=== PATIENT | male | born 1945 | race Caucasian/White ===

== ENCOUNTER 2017-11-17 16:51 | Observation (INO) | payer MEDICARE, OTHER ==
[~2017-11-17] VITALS: Ht 177.8 cm; Wt 96.6 kg
[~2017-11-17 16:51] MED LIST: AMOXICILLIN500 MG PO; AZOR 10-40 MG1 EACH PO; BENICAR20 MG PO; BYSTOLIC5 MG PO; COLESTIPOL HCL1 GM PO; LEVAQUIN500 MG PO; OCUVITE SOFTGE1 EACH PO; VITAMIN D35000 UNIT PO
[2017-11-17] MEDS ORDERED: TAMSULOSIN HCL0.4 MG PO (17:36)
[2017-11-17] MEDS ORDERED: SODIUM CHLORIDE 0.9% 1000ML 1,000 ML IV STA (17:59)
--- NOTE | 2017-11-17 18:32 | Diagnostic Imaging Report ---
PROCEDURE:HAND RIGHT 3 VIEWS AP \T\ LAT COMPARISON:DX, WRIST COMPLETE LEFT, 11/17/2014, 9:00. INDICATIONS:RIGHT HAND SWELLING FINDINGS: Generalized osteopenia. No acute, displaced fracture or dislocation. Moderate degenerative changes with joint space narrowing and subchondral sclerosis in the first carpometacarpal joint as well as the scaphoid-trapezium/trapezoid joints. Sclerotic changes of the lunate bone, suggesting sequela of avascular necrosis. No lytic lesions. Mild soft tissue swelling surrounding the wrist. CONCLUSION: 1. No acute abnormalities. 2. Moderate degenerative changes in the first carpometacarpal joint and scaphoid-trapezium/trapezoid joints. 3. 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 Kin Garcia M.D. Dictated by: Kin Garcia M.D. on 11/17/2017 at 18:41 Electronically approved by: Kin Garcia M.D. on 11/17/2017 at 18:41
--- NOTE | 2017-11-17 18:34 | Diagnostic Imaging Report ---
PROCEDURE:CHEST 1 VIEW PORTABLE COMPARISON:CT, CT CHEST WO, 02/17/2015, 13:33. INDICATIONS:RIGHT HAND SWELLING FINDINGS:Lungs are well-inflated. Minimal atelectatic changes in the left lower lung. No consolidation or pulmonary edema. No effusion, or pneumothorax. Cardiac mediastinal silhouette is unremarkable. Pulmonary vasculature is normal. No acute bony abnormalities. CONCLUSION: Minimal atelectatic changes in the left lower lung. No consolidation or effusion. Kin Garcia M.D. Dictated by: Kin Garcia M.D. on 11/17/2017 at 18:44 Electronically approved by: Kin Garcia M.D. on 11/17/2017 at 18:44
[2017-11-17 19:04] LABS: BASOPHILS % 0.3 % (0.0-1.0); EOSINOPHILS # (AUTO) 0.1 (0.0-0.4); EOSINOPHILS % 0.4 % (0.0-6.0); HEMOGLOBIN 14.2 g/dL (14.0-18.0); LYMPHOCYTES # (AUTO) 1.4 (1.0-3.2); LYMPHOCYTES % 12.5 % (18.0-39.1); MEAN CORPUSCULAR HEMOGLOBIN 32.1 pg (28-32); MEAN CORPUSCULAR HGB CONC 34.6 g/dL (31-35); MEAN CORPUSCULAR VOLUME 92.8 fL (81-99); MONOCYTES % 8.3 % (4.4-11.3); NEUTROPHILS # (AUTO) 8.9 (2.1-6.9); NEUTROPHILS % 77.9 % (38.7-80.0); PLATELET COUNT 206 x10e3/uL (140-360); RED BLOOD COUNT 4.42 x10e6/uL (4.3-5.7); RED CELL DISTRIBUTION WIDTH 12.5 % (11.7-14.4)
[2017-11-17] MEDS: LEVOFLOXACIN 500MG/D5W 100ML 100 ML IV SCH (19:19)
[2017-11-17 19:24] LABS: ALANINE AMINOTRANSFERASE 11 IU/L (0-55); ALBUMIN 4.3 g/dL (3.5-5.0); ALBUMIN/GLOBULIN RATIO 1.2 (0.8-2.0); ALKALINE PHOSPHATASE 33 IU/L (40-150); ANION GAP 14.2 mmol/L (8-16); BLOOD UREA NITROGEN 17 mg/dL (7-26); BUN/CREATININE RATIO 17 (6-25); CALCIUM 9.4 mg/dL (8.4-10.2); CARBON DIOXIDE 23 mmol/L (22-29); CHLORIDE 98 mmol/L (98-107); CREATININE, SERUM 1.03 mg/dL (0.72-1.25); EST GLOMERULAR FILTRATION RATE > 60 ML/MIN (60-); GLUCOSE 90 mg/dL (74-118); MAGNESIUM 1.7 MG/DL (1.3-2.1); POTASSIUM 4.2 mmol/L (3.5-5.1); SODIUM 131 mmol/L (136-145)
[2017-11-17] MEDS ORDERED: ONDANSETRON HCL INJ 2 MG/ML VIAL IV PRN (19:45)
[2017-11-17] MEDS ORDERED: MORPHINE SULFATE 2 MG/ML SYR IV PRN (19:45)
--- OUTSIDE RECORDS SUMMARY | 2017-11-17 19:57 | XMS REPORT ---
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 Allergies, Adverse Reactions, Alerts This patient has no known allergies or adverse reactions. Medications This patient has no known medications. Results Test Description Test Time Test Comments Text Results Atomic Results Result Comments HAND 3+ VIEWS RIGHT [place] [address] Patient Name: RASHARD HOUGH MR #: [id number] : 1945 Age/Sex: 72/M Req #: [id number] Adm Physician: Ordered by: MERARI VALENTINE MD Report #: [id number] Location: ER Room/Bed: Procedure: [id number] DX/HAND 3+ VIEWS RIGHT Exam Date: 11/17/17 Exam Time : 1810 REPORT STATUS: Signed PROCEDURE: HAND RIGHT 3 VIEWS AP T LAT COMPARISON: DX, WRIST COMPLETE LEFT, 11/17/2014, 9:00. INDICATIONS: RIGHT HAND SWELLING FINDINGS: Generalized osteopenia. No acute, displaced fracture or dislocation. Moderate degenerative changes with joint space narrowing and subchondral sclerosis in the first carpometacarpal joint as well as the scaphoid-trapezium/trapezoid joints. Sclerotic changes of the lunate bone, suggesting sequela of avascular necrosis. No lytic lesions. Mild soft tissue swelling surrounding the wrist. CONCLUSION: 1. No acute abnormalities. 2. Moderate degenerative changes in the first carpometacarpal joint and scaphoid- trapezium/trapezoid joints. 3. 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 Cabrera Garcia M.D. Dictated by: Cabrera Garcia M.D. on 11/17/2017 at 18:41 Electronically approved by: Cabrera Garcia M.D. on 11/17/2017 at 18:41 Dictated By: CABRERA GARICA MD 40 Transcribed By: KAVITA on 11/17/171840 COPY TO: MERARI VALENTINE MD CHEST 1 VIEW PORTABLE [place] [address] Patient Name: RASHARD HOUGH MR #: [id number] : 1945 Age/Sex: 72/M Req #: [id number] Adm Physician: Ordered by: MERARI VALENTINE MD Report #: [id number] Location: ER Room/Bed: Procedure: [id number] DX/CHEST 1 VIEW PORTABLE Exam Date: 11/17/17 Exam Time: 1810 REPORT STATUS: Signed PROCEDURE: CHEST 1 VIEW PORTABLE COMPARISON: CT, CT CHEST WO, 02/17/2015, 13:33. INDICATIONS: RIGHT HAND SWELLING FINDINGS: Lungs are well-inflated. Minimal atelectatic changes in the left lower lung. No consolidation or pulmonary edema. No effusion, or pneumothorax. Cardiac mediastinal silhouette is unremarkable. Pulmonary vasculature is normal. No acute bony abnormalities. CONCLUSION: Minimal atelectatic changes in the left lower lung. No consolidation or effusion. Cabrera Garcia M.D. Dictated by : Cabrera Garcia M.D. on 11/17/2017 at 18:44 Electronically approved by: Cabrera Garcia M.D. on 11/17/2017 at 18:44 Dictated By : CABRERA GARCIA MD 43 Transcribed By: KAVITA on 11/17/171843 COPY TO: MERARI VALETNINE MD
[2017-11-17] MEDS ORDERED: MORPHINE SULFATE 2 MG/ML SYR IV ONE (20:00)
[2017-11-17] MEDS ORDERED: ONDANSETRON HCL INJ 2 MG/ML VIAL IV ONE (20:00)
[2017-11-17] MEDS: VANCOMYCIN 1GM/NS 250 ML 250 ML IV SCH (20:20)
[2017-11-17 20:29] LABS: BILIRUBIN,URINE NEGATIVE (NEGATIVE); COLOR,URINE YELLOW (YELLOW); KETONES,URINE NEGATIVE (NEGATIVE); LEUKOCYTE ESTERASE ,URINE NEGATIVE (NEGATIVE); NITRITE,URINE NEGATIVE (NEGATIVE); PROTEIN,URINE DIPSTICK NEGATIVE (NEGATIVE); URINE UROBILINOGEN 0.2 mg/dL (0.2 - 1)
[2017-11-17 20:30] LABS: CLARITY,URINE CLEAR (CLEAR)
[2017-11-17 20:40] LABS: EPITHELIAL CELLS,URINE RARE /LPF
[2017-11-17 22:00] VITALS: BP 122/73
[2017-11-17] MEDS: SODIUM CHLORIDE 0.9% 1000ML 1,000 ML IV SCH (22:06)
[2017-11-18] MEDS: SODIUM CHLORIDE 0.9% 1000ML 1,000 ML IV SCH ×2 (06:00→15:34)
[2017-11-18 06:37] LABS: BASOPHILS % 0.3 % (0.0-1.0); EOSINOPHILS # (AUTO) 0.2 (0.0-0.4); HEMATOCRIT 39.6 % (38.2-49.6); HEMOGLOBIN 13.8 g/dL (14.0-18.0); LYMPHOCYTES # (AUTO) 1.5 (1.0-3.2); LYMPHOCYTES % 16.7 % (18.0-39.1); MEAN CORPUSCULAR HEMOGLOBIN 32.3 pg (28-32); MEAN CORPUSCULAR HGB CONC 34.8 g/dL (31-35); MEAN CORPUSCULAR VOLUME 92.7 fL (81-99); MONOCYTES # (AUTO) 0.9 (0.2-0.8); MONOCYTES % 9.3 % (4.4-11.3); NEUTROPHILS # (AUTO) 6.6 (2.1-6.9); NEUTROPHILS % 71.2 % (38.7-80.0); PLATELET COUNT 180 x10e3/uL (140-360); RED BLOOD COUNT 4.27 x10e6/uL (4.3-5.7); RED CELL DISTRIBUTION WIDTH 12.6 % (11.7-14.4)
[2017-11-18 06:59] LABS: ALANINE AMINOTRANSFERASE 66 IU/L (0-55); ALBUMIN 3.6 g/dL (3.5-5.0); ALBUMIN/GLOBULIN RATIO 1.1 (0.8-2.0); ALKALINE PHOSPHATASE 32 IU/L (40-150); ANION GAP 13.2 mmol/L (8-16); BLOOD UREA NITROGEN 11 mg/dL (7-26); BUN/CREATININE RATIO 11 (6-25); CALCIUM 8.5 mg/dL (8.4-10.2); CARBON DIOXIDE 25 mmol/L (22-29); CHLORIDE 101 mmol/L (98-107); CREATININE, SERUM 0.98 mg/dL (0.72-1.25); EST GLOMERULAR FILTRATION RATE > 60 ML/MIN (60-); GLUCOSE 93 mg/dL (74-118); POTASSIUM 4.2 mmol/L (3.5-5.1); SODIUM 135 mmol/L (136-145)
[2017-11-18 07:15] VITALS: BP 135/77
[2017-11-18] MEDS ORDERED: AMLODIPINE BESYLATE 5 MG TAB PO SCH (09:00)
[2017-11-18] MEDS ORDERED: OLMESARTAN 20 MG TAB PO SCH (09:00)
[2017-11-18] MEDS ORDERED: OLMESARTAN MED PO SCH (09:00)
[2017-11-18] MEDS ORDERED: AMLODIPINE BES PO SCH (09:00)
[2017-11-18] MEDS: PANTOPRAZOLE 40 MG 10ML VIAL IV SCH (09:16)
[2017-11-18] MEDS: VANCOMYCIN 1GM/NS 250 ML 250 ML IV SCH ×2 (09:17→18:23)
[2017-11-18] MEDS: TAMSULOSIN HCL 0.4 MG CAP PO SCH (09:17)
[2017-11-18] MEDS: OLMESARTAN 20 MG TAB PO SCH (09:17)
[2017-11-18] MEDS: AMLODIPINE BESYLATE 10 MG TAB PO SCH (09:17)
[2017-11-18 12:00] VITALS: BP 135/77
[2017-11-18 12:13] VITALS: BP 131/71
[2017-11-18 15:43] VITALS: BP 150/81
[2017-11-18] MEDS ORDERED: COLESTID1 G PO (15:44)
[2017-11-18] MEDS: LEVOFLOXACIN 500MG/D5W 100ML 100 ML IV SCH (19:20)
[2017-11-18 20:00] VITALS: BP 146/84
[2017-11-18 22:42] VITALS: BP 146/84
[2017-11-19] VITALS: BP 116/68
[2017-11-19] MEDS: SODIUM CHLORIDE 0.9% 1000ML 1,000 ML IV SCH ×3 (01:37→21:04)
[2017-11-19 04:00] VITALS: BP 154/78
[2017-11-19 07:48] VITALS: BP 141/70
[2017-11-19] MEDS: COLESTIPOL HCL 1 G TAB PO SCH (09:00)
[2017-11-19] MEDS: OLMESARTAN 20 MG TAB PO SCH (09:00)
[2017-11-19] MEDS: PANTOPRAZOLE 40 MG 10ML VIAL IV SCH (09:00)
[2017-11-19] MEDS: VANCOMYCIN 1GM/NS 250 ML 250 ML IV SCH ×2 (09:00→21:04)
[2017-11-19] MEDS: TAMSULOSIN HCL 0.4 MG CAP PO SCH (09:00)
[2017-11-19] MEDS: AMLODIPINE BESYLATE 10 MG TAB PO SCH (09:00)
[2017-11-19 09:20] LABS: BASOPHILS % 0.3 % (0.0-1.0); EOSINOPHILS # (AUTO) 0.2 (0.0-0.4); EOSINOPHILS % 1.9 % (0.0-6.0); HEMATOCRIT 38.2 % (38.2-49.6); HEMOGLOBIN 13.3 g/dL (14.0-18.0); LYMPHOCYTES # (AUTO) 1.4 (1.0-3.2); LYMPHOCYTES % 14.7 % (18.0-39.1); MEAN CORPUSCULAR HEMOGLOBIN 32.4 pg (28-32); MEAN CORPUSCULAR HGB CONC 34.8 g/dL (31-35); MEAN CORPUSCULAR VOLUME 92.9 fL (81-99); MONOCYTES # (AUTO) 0.9 (0.2-0.8); MONOCYTES % 9.1 % (4.4-11.3); NEUTROPHILS % 73.6 % (38.7-80.0); PLATELET COUNT 182 x10e3/uL (140-360); RED BLOOD COUNT 4.11 x10e6/uL (4.3-5.7); RED CELL DISTRIBUTION WIDTH 12.3 % (11.7-14.4)
[2017-11-19 11:53] VITALS: BP 144/76
--- NOTE | 2017-11-19 14:46 | Consultation ---
DATE OF CONSULTATION: REASON FOR CONSULTATION: Cellulitis of the hand. HISTORY OF PRESENT ILLNESS: This patient, who is a very pleasant, 72-year-old white male, who has history of hypertension, history of deaf, comes in with right arm redness and swelling. No specific trauma. No specific injury. There was pain. Patient was admitted and started on intravenous antibiotic. Infectious disease was asked to see the patient. The patient was admitted on antibiotic. He says he is feeling better. PAST HISTORY: He has a history of hypertension, history of probably cellulitis a year ago. He denies specifically gout. SOCIAL HISTORY: There is no smoking, drug abuse, alcohol abuse. MEDICATIONS: Reviewed. ALLERGIES: PENICILLIN. REVIEW OF SYSTEMS HEENT: There is no headache, visual changes, hearing changes. GI: There is no nausea, no vomiting, no diarrhea. CARDIAC: No arrhythmia. NEURO: No seizure activity. SKIN: No rash. He denies any other problem with joints before. LABORATORY DATA: Reviewed. As mentioned above. Sodium 131, potassium 4.2, BUN 11, creatinine 0.8, glucose 93. White count 9.23, hemoglobin 13. MEDICATIONS: Currently, he is on Levaquin and vancomycin. He is also on ondansetron. Discussed with his . PHYSICAL EXAMINATION GENERAL: He is currently alert and oriented, does not seem to be in acute distress. VITALS: Stable, currently afebrile. HEENT: He is not icteric. Normocephalic. NECK: Supple. No JVD. No lymphadenopathy. No thyromegaly. CHEST: Clear bilaterally. COR: S1 and S2. No S3, S4. No murmur. ABDOMEN: Soft. Bowel sounds are present. No tenderness. EXTREMITIES: There is edema. There is no specific erythema at the present time, but the is telling me there was significant erythema yesterday. IMPRESSION: Cellulitis of the hand. Will obtain uric acid just to rule out gout. Agree with the current choice of antibiotics since he is feeling better. Will follow the vancomycin trough. Recheck CBC. Will follow with you. Job#: [id number]
[2017-11-19 16:01] VITALS: BP 136/70
[2017-11-19] MEDS: LEVOFLOXACIN 500MG/D5W 100ML 100 ML IV SCH (17:13)
[2017-11-19 19:20] VITALS: BP 142/74
[2017-11-20 00:23] VITALS: BP 134/74
[2017-11-20 04:38] VITALS: BP 133/75
[2017-11-20 07:36] VITALS: BP 146/81
[2017-11-20] MEDS: SODIUM CHLORIDE 0.9% 1000ML 1,000 ML IV SCH ×2 (08:00→17:34)
[2017-11-20] MEDS: PANTOPRAZOLE 40 MG 10ML VIAL IV SCH (08:15)
[2017-11-20] MEDS: TAMSULOSIN HCL 0.4 MG CAP PO SCH (08:45)
[2017-11-20] MEDS: AMLODIPINE BESYLATE 10 MG TAB PO SCH (08:45)
[2017-11-20] MEDS: OLMESARTAN 20 MG TAB PO SCH (08:45)
[2017-11-20] MEDS: COLESTIPOL HCL 1 G TAB PO SCH (08:45)
[2017-11-20] MEDS: VANCOMYCIN 1GM/NS 250 ML 250 ML IV SCH ×2 (08:50→22:20)
[2017-11-20 11:26] VITALS: BP 143/81
[2017-11-20 16:02] VITALS: BP 141/73
[2017-11-20] MEDS: LEVOFLOXACIN 500MG/D5W 100ML 100 ML IV SCH (17:55)
[2017-11-20 20:00] VITALS: BP 155/95
[2017-11-21] VITALS: BP 145/79
[2017-11-21] MEDS: SODIUM CHLORIDE 0.9% 1000ML 1,000 ML IV SCH (03:34)
[2017-11-21 04:00] VITALS: BP 143/83
[2017-11-21 07:34] VITALS: BP 149/84
[2017-11-21] MEDS: AMLODIPINE BESYLATE 10 MG TAB PO SCH (08:45)
[2017-11-21] MEDS: COLESTIPOL HCL 1 G TAB PO SCH (08:45)
[2017-11-21] MEDS: TAMSULOSIN HCL 0.4 MG CAP PO SCH (08:45)
[2017-11-21] MEDS: PANTOPRAZOLE 40 MG 10ML VIAL IV SCH (08:55)
[2017-11-21] MEDS: OLMESARTAN 20 MG TAB PO SCH (08:55)
[2017-11-21] MEDS: VANCOMYCIN 1GM/NS 250 ML 250 ML IV SCH (09:20)
[2017-11-21 11:42] VITALS: BP 142/79
[2017-11-21] MEDS ORDERED: DOXYCYCLINE HY100 MG PO (13:48)
== END 2017-11-21 15:43 | disposition home or self-care (01) ==
LOC: ER 16:51 → ERHOLD 19:34 → IMCU 21:20 → INTOOBSV 11-18 07:10 → OBSVTOIN 11-18 07:10 → MED/SURG3 11-18 14:46
PROVIDERS: ADMIT Internal Medicine; ATTEND Internal Medicine
DX: L03.113 Cellulitis of right upper limb (principal); I10 Essential (primary) hypertension; Z88.0 Allergy status to penicillin; K21.9 Gastro-esophageal reflux disease without esophagitis; N40.0 Benign prostatic hyperplasia without lower urinary tract symptoms
CPT/HCPCS: 36415 ×5; 71045; 73130; 80053 ×2; 80202 ×3; 81001; 82948 ×2; 83735; 84550; 85025 ×3; 87040; 87086; 93005; 99284; G0378 ×5; J1956 ×3; J2270; J2405; J3370 ×5; J7030 ×5

== ENCOUNTER 2020-07-30 13:26 | Observation (INO) | payer MEDICARE ==
[~2020-07-30] VITALS: Ht 170.2 cm; Wt 98.6 kg
[~2020-07-30 13:26] MED LIST changes: +COLESTID1 G PO; +DOXYCYCLINE HY100 MG PO; +TAMSULOSIN HCL0.4 MG PO
[2020-07-30 14:23] LABS: BASOPHILS % 0.4 % (0.0-1.0); EOSINOPHILS # (AUTO) 0.1 (0.0-0.4); EOSINOPHILS % 0.7 % (0.0-6.0); HEMATOCRIT 42.1 % (38.2-49.6); HEMOGLOBIN 14.7 g/dL (14.0-18.0); LYMPHOCYTES # (AUTO) 1.9 (1.0-3.2); MEAN CORPUSCULAR HEMOGLOBIN 32.4 pg (28-32); MEAN CORPUSCULAR HGB CONC 34.9 g/dL (31-35); MEAN CORPUSCULAR VOLUME 92.7 fL (81-99); MONOCYTES # (AUTO) 1.1 (0.2-0.8); MONOCYTES % 9.7 % (4.4-11.3); NEUTROPHILS # (AUTO) 7.8 (2.1-6.9); NEUTROPHILS % 71.7 % (38.7-80.0); PLATELET COUNT 211 x10e3/uL (140-360); RED BLOOD COUNT 4.54 x10e6/uL (4.3-5.7); RED CELL DISTRIBUTION WIDTH 13.1 % (11.7-14.4)
[2020-07-30 14:42] LABS: ALANINE AMINOTRANSFERASE 12 IU/L (0-55); ALBUMIN/GLOBULIN RATIO 1.3 (0.8-2.0); ALKALINE PHOSPHATASE 32 IU/L (40-150); ANION GAP 13.9 mmol/L (8-16); BLOOD UREA NITROGEN 15 mg/dL (7-26); BUN/CREATININE RATIO 15 (6-25); CALCIUM 9.3 mg/dL (8.4-10.2); CARBON DIOXIDE 25 mmol/L (22-29); CHLORIDE 97 mmol/L (98-107); CREATINE KINASE 50 IU/L (30-200); CREATININE, SERUM 1.02 mg/dL (0.72-1.25); EST GLOMERULAR FILTRATION RATE > 60 ML/MIN (60-); GLUCOSE 103 mg/dL (74-118); POTASSIUM 3.9 mmol/L (3.5-5.1); SODIUM 132 mmol/L (136-145)
[2020-07-30] MEDS ORDERED: CLINDAMYCIN PHOS 900MG/ 50ML 50 ML IV STA (17:17)
--- NOTE | 2020-07-30 17:48 | Emergency Department Note ---
History of Present Illnes History of Present Illness Chief Complaint: Extremity Trauma/Pain History of Present Illness This is a 74 year old male arrives to the ED insisting that his left upper extremity is infected and swollen. Patient states the last time this happened infection spread throughout his body. . Chief Complaint Comment Patient in from home with complaints of left distal arm pain that started two days ago. Patient reports that he has a history of "infection to the left hand and arm" two years ago and was treated inpatient with antibiotics. Patient's left hand and arm do not appear red, are not swollen or warm to touch, good pulses and cap refill and exhibits good active and passive range of motion despite reports of increased pain with movement. No acute distress noted. Afebrile in traige. Historian: Patient Arrival Mode: Car Onset (how long ago): day(s) Radiation: Reports non-radiation Severity: mild Onset quality: gradual Duration (how long): day(s) Progression: worsening Chronicity: new Context: Denies recent illness, Denies recent surgery, Denies recent immobilization Relieving factors: none Exacerbating factors: none Past Medical/Family History Physician Review I have reviewed the patient's past medical and family history. Any updates have been documented here. Past Medical History Recent Fever: No Clinical Suspicion of Infectio: No New/Unexplained Change in Ment: No Past Medical History: Hypertension Other Medical History: IBS BPH Past Surgical History: Cholecysctectomy Other Surgery: KNEE SURGERY BOWEL RESECTION Other Last Tetanus: UTD Review of Systems Review of Systems Constitutional: Reports no symptoms EENTM: Reports no symptoms Cardiovascular: Reports no symptoms Respiratory: Reports no symptoms Gastrointestinal: Reports no symptoms Genitourinary: Reports no symptoms Musculoskeletal: Reports as per HPI, Reports joint pain Integumentary: Reports no symptoms Neurological: Reports no symptoms Psychological: Reports no symptoms Endocrine: Reports no symptoms Hematological/Lymphatic: Reports no symptoms Physical Exam Related Data Allergies: Coded Allergies: piperacillin (Verified Allergy, Intermediate, rash, 04/30/17) tazobactam (Verified Allergy, Intermediate, rash, 04/30/17) Triage Vital Signs Vital Signs Date Time Temp Pulse Resp B/P (MAP) Pulse Ox O2 Delivery O2 Flow Rate FiO2 07/30/20 13:40 97.1 102 16 122/73 99 Room Air Vital signs reviewed: Yes Physical Exam CONSTITUTIONAL Constitutional: Present well-developed, Present well-nourished HENT HENT: Present normocephalic, Present atraumatic, Present oropharynx clear/moist, Present nose normal HENT L/R: Present left ext ear normal, Present right ext ear normal EYES Eyes: Reports PERRL, Reports conjunctivae normal NECK Neck: Present ROM normal PULMONARY Pulmonary: Present effort normal, Present breath sounds normal CARDIOVASCULAR Cardiovascular: Present regular rhythm, Present heart sounds normal, Present capillary refill normal, Present normal rate GASTROINTESTINAL Abdominal: Present soft, Present nontender, Present bowel sounds normal GENITOURINARY Genitourinary: Present exam deferred SKIN Skin: Present warm, Present dry MUSCULOSKELETAL Musculoskeletal: Present tenderness NEUROLOGICAL Neurological: Present alert, Present oriented x 3, Present no gross motor or sensory deficits PSYCHOLOGICAL Psychological: Present mood/affect normal, Present judgement normal Results Laboratory Result Diagram: 07/30/20 1355 07/30/20 1355 Laboratory Laboratory Tests Test 07/30/20 13:55 White Blood Count 10.91 x10e3/uL (4.8-10.8) Red Blood Count 4.54 x10e6/uL (4.3-5.7) Hemoglobin 14.7 g/dL (14.0-18.0) Hematocrit 42.1 % (38.2-49.6) Mean Corpuscular Volume 92.7 fL (81-99) Mean Corpuscular Hemoglobin 32.4 pg (28-32) Mean Corpuscular Hemoglobin Concent 34.9 g/dL (31-35) Red Cell Distribution Width 13.1 % (11.7-14.4) Platelet Count 211 x10e3/uL (140-360) Neutrophils (%) (Auto) 71.7 % (38.7-80.0) Lymphocytes (%) (Auto) 17.0 % (18.0-39.1) Monocytes (%) (Auto) 9.7 % (4.4-11.3) Eosinophils (%) (Auto) 0.7 % (0.0-6.0) Basophils (%) (Auto) 0.4 % (0.0-1.0) Neutrophils # (Auto) 7.8 (2.1-6.9) Lymphocytes # (Auto) 1.9 (1.0-3.2) Monocytes # (Auto) 1.1 (0.2-0.8) Eosinophils # (Auto) 0.1 (0.0-0.4) Basophils # (Auto) 0.0 (0.0-0.1) Absolute Immature Granulocyte (auto 0.06 x10e3/uL (0-0.1) Sodium Level 132 mmol/L (136-145) Potassium Level 3.9 mmol/L (3.5-5.1) Chloride Level 97 mmol/L (98-107) Carbon Dioxide Level 25 mmol/L (22-29) Anion Gap 13.9 mmol/L (8-16) Blood Urea Nitrogen 15 mg/dL (7-26) Creatinine 1.02 mg/dL (0.72-1.25) Estimat Glomerular Filtration Rate > 60 ML/MIN (60-) BUN/Creatinine Ratio 15 (6-25) Glucose Level 103 mg/dL (74-118) Calcium Level 9.3 mg/dL (8.4-10.2) Total Bilirubin 0.7 mg/dL (0.2-1.2) Aspartate Amino Transf (AST/SGOT) 14 IU/L (5-34) Alanine Aminotransferase (ALT/SGPT) 12 IU/L (0-55) Alkaline Phosphatase 32 IU/L (40-150) Creatine Kinase 50 IU/L (30-200) Creatine Kinase MB 1.70 ng/mL (0-5.0) Troponin I 0.001 ng/mL (0-0.300) Total Protein 7.0 g/dL (6.5-8.1) Albumin 4.0 g/dL (3.5-5.0) Globulin 3.0 g/dL (2.3-3.5) Albumin/Globulin Ratio 1.3 (0.8-2.0) Assessment & Plan Medical Decision Making MDM 74-year-old male arrives to the ED with left upper extremity pain worse with motion, concerns of possible cellulitis versus septic joint. Patient admitted for further workup and management. One dose of antibiotics given in the ER. Assessment & Plan Final Impression: (1) Cellulitis Depart Disposition: ADMITTED Last Vital Signs Date Time Temp Pulse Resp B/P (MAP) Pulse Ox O2 Delivery O2 Flow Rate FiO2 07/30/20 13:40 97.1 102 16 122/73 99 Room Air Home Meds Reported Medications Doxycycline Hyclate (DOXYCYCLINE HYCLATE) 100 Mg Capsule, 100 MG PO Q12H, CAP 11/21/17 Colestipol Hcl (COLESTID) 1 G Tab, 2 G PO DAILY 11/18/17 Tamsulosin Hcl (TAMSULOSIN HCL) 0.4 Mg Cap.er.24h, 1 TAB PO DAILY 11/17/17 Amlodipine Bes/Olmesartan Med (KIRIT 10-40 MG TABLET) 1 Each Tablet, 10 MG PO DAILY 01/31/14 Cholecalciferol (Vitamin D3) (VITAMIN D3) 5,000 Unit Capsule, 5000 MG PO DAILY 01/31/14 Vit C/Vit E/Lutein/Min/Lavaca-3 (OCUVITE SOFTGEL) 1 Each Capsule, 1 CAP PO DAILY 01/31/14 Medications in the ED Clindamycin Phosphate 50 ml @ 50 mls/hr NOW STAT IV ; Start 07/30/20 at 17:17; Stop 07/30/20 at 18:16 EVELINA LAZARO DO Jul 30, 2020 17:48
[2020-07-30] MEDS: SODIUM CHLORIDE 0.9% 1000ML 1,000 ML IV SCH (18:12)
[2020-07-30 21:44] VITALS: BP 125/69
[2020-07-31] VITALS (8 sets, daily range): BP systolic 122–135; BP diastolic 66–78
[2020-07-31] MEDS: SODIUM CHLORIDE 0.9% 1000ML 1,000 ML IV SCH ×3 (05:29→15:52)
[2020-07-31] MEDS: CLINDAMYCIN PHOS 900MG/ 50ML 50 ML IV SCH ×3 (05:29→20:13)
[2020-07-31 05:46] LABS: BASOPHILS % 0.4 % (0.0-1.0); EOSINOPHILS # (AUTO) 0.2 (0.0-0.4); EOSINOPHILS % 2.6 % (0.0-6.0); HEMATOCRIT 40.4 % (38.2-49.6); LYMPHOCYTES # (AUTO) 1.8 (1.0-3.2); LYMPHOCYTES % 21.2 % (18.0-39.1); MEAN CORPUSCULAR HEMOGLOBIN 32.2 pg (28-32); MEAN CORPUSCULAR HGB CONC 34.7 g/dL (31-35); MEAN CORPUSCULAR VOLUME 92.9 fL (81-99); MONOCYTES # (AUTO) 0.8 (0.2-0.8); MONOCYTES % 9.7 % (4.4-11.3); NEUTROPHILS # (AUTO) 5.6 (2.1-6.9); NEUTROPHILS % 65.5 % (38.7-80.0); PLATELET COUNT 183 x10e3/uL (140-360); RED BLOOD COUNT 4.35 x10e6/uL (4.3-5.7)
[2020-07-31 06:08] LABS: ALANINE AMINOTRANSFERASE 10 IU/L (0-55); ALBUMIN 3.4 g/dL (3.5-5.0); ALBUMIN/GLOBULIN RATIO 1.2 (0.8-2.0); ALKALINE PHOSPHATASE 31 IU/L (40-150); ANION GAP 14.3 mmol/L (8-16); BLOOD UREA NITROGEN 14 mg/dL (7-26); BUN/CREATININE RATIO 16 (6-25); CALCIUM 8.3 mg/dL (8.4-10.2); CARBON DIOXIDE 21 mmol/L (22-29); CHLORIDE 102 mmol/L (98-107); CREATININE, SERUM 0.87 mg/dL (0.72-1.25); EST GLOMERULAR FILTRATION RATE > 60 ML/MIN (60-); GLUCOSE 100 mg/dL (74-118); POTASSIUM 4.3 mmol/L (3.5-5.1); SODIUM 133 mmol/L (136-145)
[2020-07-31] MEDS: LACTOBACILLUS ACIDOPHILUS CAPSULE PO SCH ×2 (08:51→16:02)
[2020-07-31] MEDS ORDERED: OLMESARTAN 20 MG TAB PO SCH (09:00)
[2020-07-31] MEDS ORDERED: AMLODIPINE BESYLATE 5 MG TAB PO SCH (09:00)
[2020-07-31] MEDS ORDERED: COLESTIPOL HCL 1 G TAB PO SCH (10:00)
--- NOTE | 2020-07-31 11:04 | NUR ---
DAY 1 OBS. ER NOTE: Chief Complaint Comment Patient in from home with complaints of left distal arm pain that started two days ago. Patient reports that he has a history of "infection to the left hand and arm" two years ago and was treated inpatient with antibiotics. Patient's left hand and arm do not appear red, are not swollen or warm to touch, good pulses and cap refill and exhibits good active and passive range of motion despite reports of increased pain with movement. No acute distress noted. Afebrile in traige. SENT TO FOR LOC DETERMINATION
--- NOTE | 2020-07-31 13:32 | NUR ---
R1 LOC DETERMINATION: [facility] case account ending in 4081 has been reviewed and completed by [facility] Physicians. Service Line: Level of Care (LOC) / Admission Status Review Initial patient type was submitted as: IO - Initial Observation PAS Recommendation: OU
[2020-07-31] MEDS ORDERED: TAMSULOSIN HCL 0.4 MG CAP PO SCH (21:00)
[2020-08-01 00:05] VITALS: BP 113/79
--- NOTE | 2020-08-01 01:09 | Discharge Summary ---
DISCHARGE DIAGNOSIS: Left arm cellulitis. HISTORY OF PRESENT ILLNESS AND HOSPITAL COURSE: See hospital chart for full details. The patient is a gentleman, who presented with left arm cellulitis, was brought in and placed on IV Cleocin, which he had significant improvement for short period of time, to the point, that was almost nearly resolved at the time of discharge, so he really wanted to go home, so he was discharged with his home medicines of p.o. clindamycin 300 mg t.i.d. for seven more days and follow up in 1 to 2 weeks with me. Please see hospital chart for full details. MD GUADALUPE Johnson/TRENT /[id number]
[2020-08-01] MEDS: SODIUM CHLORIDE 0.9% 1000ML 1,000 ML IV SCH (03:26)
[2020-08-01 04:00] VITALS: BP 136/77
[2020-08-01] MEDS: CLINDAMYCIN PHOS 900MG/ 50ML 50 ML IV SCH (05:22)
--- NOTE | 2020-08-01 07:30 | NUR ---
reeived pt from previous shift, night nurse states pt is dc from dr lofton at 0100. pt rsting, up in chair, pt states he is ready to go home. explain to pt dc papers hernandez be given after nurse finishes report and rounding. pt verbalizes understanding
[2020-08-01 08:00] VITALS: BP 124/69
[2020-08-01 08:11] VITALS: BP 124/69
--- NOTE | 2020-08-01 08:45 | NUR ---
pt dc instructions given. pt given prescriptions and told to call dr lofton to get appt for 1 week. pt verbalizes understanding of dc instructions. iv dc'd, pt has no c/o pain, vital signs stable
== END 2020-08-01 09:03 | disposition home or self-care (01) ==
LOC: ER 13:49 → ERHOLD 17:20 → MED/SURG2 21:44
PROVIDERS: ADMIT Internal Medicine; ATTEND Internal Medicine
DX: L03.114 Cellulitis of left upper limb (principal); I10 Essential (primary) hypertension; N40.0 Benign prostatic hyperplasia without lower urinary tract symptoms; Z11.59 Encounter for screening for other viral diseases; E66.9 Obesity, unspecified; Z68.34 Body mass index [BMI] 34.0-34.9, adult
CPT/HCPCS: 36415 ×2; 80053 ×2; 82550; 82553; 84484; 85025 ×2; 87040; 87071; 87205; 93971; 99284; G0378 ×3; J7030 ×3; U0002

== ENCOUNTER 2022-01-05 04:02 | Emergency (ER) | payer MEDICARE ==
[~2022-01-05] VITALS: Ht 177.8 cm; Wt 93.0 kg
[2022-01-05] MEDS ORDERED: Morphine 4mg Syringe 4 MG/ML INJ IV STA (04:07)
[2022-01-05] MEDS ORDERED: ONDANSETRON HCL 4 MG ORAL DISINTEGRATING TAB PO STA (04:07)
[2022-01-05] MEDS ORDERED: Morphine 4mg Syringe 4 MG/ML INJ IM ONE (04:15)
[2022-01-05] MEDS ORDERED: Morphine 4mg Syringe 4 MG/ML INJ ONE (04:21)
[2022-01-05] MEDS ORDERED: ONDANSETRON HCL 4 MG ORAL DISINTEGRATING TAB ONE (04:21)
[2022-01-05] MEDS ORDERED: ACETAMINOPHEN-1 EAC4 PO (05:06)
== END 2022-01-05 05:15 | disposition home or self-care (01) ==
LOC: ER 04:08
DX: M79.609 Pain in unspecified limb (principal); M79.89 Other specified soft tissue disorders; I10 Essential (primary) hypertension; Z88.0 Allergy status to penicillin
CPT/HCPCS: 73090; 99283; J2270; Q0162

== ENCOUNTER 2022-11-02 12:48 | Inpatient (IN) | payer MEDICARE ==
[~2022-11-02] VITALS: Ht 177.8 cm; Wt 93.0 kg
[~2022-11-02 12:48] MED LIST changes: +ACETAMINOPHEN-1 EAC4 PO
[2022-11-02 14:12] LABS: BASOPHILS % 0.2 % (0.0-1.0); EOSINOPHILS % 0.1 % (0.0-6.0); HEMATOCRIT 41.7 % (38.2-49.6); HEMOGLOBIN 13.4 g/dL (14.0-18.0); LYMPHOCYTES # (AUTO) 1.2 (1.0-3.2); LYMPHOCYTES % 7.6 % (18.0-39.1); MEAN CORPUSCULAR HEMOGLOBIN 31.9 pg (28-32); MEAN CORPUSCULAR HGB CONC 32.1 g/dL (31-35); MEAN CORPUSCULAR VOLUME 99.3 fL (81-99); MONOCYTES # (AUTO) 1.5 (0.2-0.8); MONOCYTES % 9.4 % (4.4-11.3); NEUTROPHILS # (AUTO) 12.9 (2.1-6.9); PLATELET COUNT 195 x10e3/uL (140-360); RED CELL DISTRIBUTION WIDTH 12.4 % (11.7-14.4)
[2022-11-02 14:31] LABS: ALBUMIN 3.3 g/dL (3.5-5.0); ALBUMIN/GLOBULIN RATIO 0.8 (0.8-2.0); ANION GAP 17.6 mmol/L (8-16); CALCIUM 9.5 mg/dL (8.4-10.2); CREATININE, SERUM 1.35 mg/dL (0.72-1.25); POTASSIUM 4.6 mmol/L (3.5-5.1)
[2022-11-02] MEDS ORDERED: SODIUM CHLORIDE 0.9% 1000ML 1,000 ML IV ONE (15:15)
[2022-11-02] MEDS ORDERED: CEFTRIAXONE 1 GM VIAL IV ONE (15:15)
[2022-11-02] MEDS ORDERED: IOPAMIDOL 370 MG/ML 100 ML INFUS..BTL INJ ONE (15:27)
[2022-11-02] MEDS ORDERED: ONDANSETRON HCL INJ 2MG/ML 2ML 2 MG/ML VIAL IV PRN (16:45)
[2022-11-02] MEDS ORDERED: METHYLPREDNISOLONE SOD SUCC 125 MG/2ML VIAL IV ONE (16:45)
[2022-11-02] MEDS: METOPROLOL TARTRATE 25 MG TAB PO SCH (18:10)
[2022-11-02 20:00] VITALS: BP 115/61
[2022-11-02 20:13] VITALS: BP 111/55
[2022-11-02 21:37] VITALS: BP 111/55
[2022-11-03] VITALS (7 sets, daily range): BP systolic 100–116; BP diastolic 58–64
[2022-11-03 05:34] LABS: BASOPHILS % 0.2 % (0.0-1.0); HEMATOCRIT 39.8 % (38.2-49.6); HEMOGLOBIN 13.7 g/dL (14.0-18.0); LYMPHOCYTES # (AUTO) 0.6 (1.0-3.2); LYMPHOCYTES % 4.9 % (18.0-39.1); MEAN CORPUSCULAR HEMOGLOBIN 32.5 pg (28-32); MEAN CORPUSCULAR HGB CONC 34.4 g/dL (31-35); MEAN CORPUSCULAR VOLUME 94.3 fL (81-99); MONOCYTES # (AUTO) 0.1 (0.2-0.8); MONOCYTES % 1.2 % (4.4-11.3); NEUTROPHILS # (AUTO) 11.3 (2.1-6.9); PLATELET COUNT 211 x10e3/uL (140-360); RED BLOOD COUNT 4.22 x10e6/uL (4.3-5.7); RED CELL DISTRIBUTION WIDTH 12.2 % (11.7-14.4)
[2022-11-03 05:59] LABS: ALBUMIN 3.1 g/dL (3.5-5.0); ALBUMIN/GLOBULIN RATIO 0.7 (0.8-2.0); ANION GAP 15.5 mmol/L (8-16); CALCIUM 9.2 mg/dL (8.4-10.2); CREATININE, SERUM 1.02 mg/dL (0.72-1.25); POTASSIUM 4.5 mmol/L (3.5-5.1)
[2022-11-03] MEDS: COLESTIPOL HCL 1 G TAB PO SCH ×2 (09:16→09:18)
[2022-11-03] MEDS: METHYLPREDNISOLONE SOD SUCC 40 MG/ML VIAL 1ML IV SCH ×2 (09:17→21:04)
[2022-11-03] MEDS: METOPROLOL TARTRATE 25 MG TAB PO SCH (16:50)
[2022-11-03] MEDS ORDERED: TAMSULOSIN HCL 0.4 MG CAP PO SCH (21:00)
[2022-11-04 01:23] VITALS: BP 94/52
[2022-11-04 05:08] VITALS: BP 106/60
[2022-11-04 08:12] VITALS: BP 111/57
[2022-11-04] MEDS ORDERED: ONDANSETRON HCL 4 MG ORAL DISINTEGRATING TAB PO PRN (08:45)
[2022-11-04 08:49] VITALS: BP 111/57
[2022-11-05] MEDS ORDERED: AZITHROMYCIN 250 MG TAB PO SCH (09:00)
== END 2022-11-04 09:55 | disposition home or self-care (01) | DRG 195 ==
LOC: ER 12:59 → ERHOLD 16:41 → MED/SURG3 18:34
PROVIDERS: ADMIT Internal Medicine; ATTEND Internal Medicine
DX: J18.9 Pneumonia, unspecified organism (principal); Z20.822 Contact with and (suspected) exposure to COVID-19; Z88.1 Allergy status to other antibiotic agents; I12.9 Hypertensive chronic kidney disease with stage 1 through stage 4 chronic kidney disease, or unspecified chronic kidney disease; N18.30 Chronic kidney disease, stage 3 unspecified; N40.0 Benign prostatic hyperplasia without lower urinary tract symptoms; D64.9 Anemia, unspecified
CPT/HCPCS: 0223U; 36415; 71045; 71046; 71260; 80053; 83605; 83880; 84484; 85025; 85379; 87040; 87400; 93005; 94799; 99284; J0456; J0696; J2920; J2930; J7030; J7050; Q9967

== ENCOUNTER 2024-01-23 07:51 | Inpatient (IN) | payer MEDICARE ==
[~2024-01-23] VITALS: Ht 177.8 cm; Wt 95.1 kg
[2024-01-23 08:52] LABS: BASOPHILS # (AUTO) 0.1 (0.0-0.1); BASOPHILS % 0.4 % (0.0-1.0); EOSINOPHILS # (AUTO) 0.1 (0.0-0.4); EOSINOPHILS % 0.7 % (0.0-6.0); HEMATOCRIT 41.7 % (38.2-49.6); HEMOGLOBIN 14.5 g/dL (14.0-18.0); LYMPHOCYTES # (AUTO) 1.5 (1.0-3.2); LYMPHOCYTES % 12.4 % (18.0-39.1); MEAN CORPUSCULAR HEMOGLOBIN 31.9 pg (28-32); MEAN CORPUSCULAR HGB CONC 34.8 g/dL (31-35); MEAN CORPUSCULAR VOLUME 91.9 fL (81-99); MONOCYTES # (AUTO) 1.5 (0.2-0.8); MONOCYTES % 11.9 % (4.4-11.3); NEUTROPHILS % 73.8 % (38.7-80.0); PLATELET COUNT 192 x10e3/uL (140-360); RED BLOOD COUNT 4.54 x10e6/uL (4.3-5.7); RED CELL DISTRIBUTION WIDTH 13.1 % (11.7-14.4); WHITE BLOOD COUNT 12.22 x10e3/uL (4.8-10.8)
[2024-01-23] MEDS: Morphine 4mg INJECTION 4 MG/ML INJ IV ONE (09:00)
[2024-01-23 09:09] LABS: ANION GAP 17.4 mmol/L (8-16); CALCIUM 9.7 mg/dL (8.4-10.2); CREATININE, SERUM 1.73 mg/dL (0.72-1.25); POTASSIUM 4.4 mmol/L (3.5-5.1)
[2024-01-23] MEDS ORDERED: ONDANSETRON HCL INJ 2MG/ML 2ML 2 MG/ML VIAL IV PRN (09:30)
[2024-01-23] MEDS: SODIUM CHLORIDE 0.9% 1000ML 1,000 ML IV STA (09:58)
[2024-01-23] MEDS: Vancomycin IV 1 GM in SODIUM CHLORIDE 0.9% 250ML 250 ML IV ONE (09:58)
[2024-01-23 14:26] VITALS: BP 136/72; O2SAT 100
[2024-01-23 16:20] VITALS: BP 138/67; PULSE 99; RESP 18; TEMP 98.3; O2SAT 99
[2024-01-23 20:00] VITALS: BP 115/64; PULSE 89; RESP 18; TEMP 98.6; O2SAT 92
[2024-01-24] VITALS (7 sets, daily range): BP systolic 127–147; BP diastolic 65–79; PULSE 87–101; RESP 16–18; TEMP 97.6–98.4; O2SAT 92–96
[2024-01-24 05:56] LABS: BASOPHILS % 0.5 % (0.0-1.0); EOSINOPHILS # (AUTO) 0.5 (0.0-0.4); EOSINOPHILS % 5.4 % (0.0-6.0); HEMATOCRIT 39.2 % (38.2-49.6); LYMPHOCYTES # (AUTO) 1.5 (1.0-3.2); LYMPHOCYTES % 17.2 % (18.0-39.1); MEAN CORPUSCULAR HEMOGLOBIN 32.2 pg (28-32); MEAN CORPUSCULAR HGB CONC 35.7 g/dL (31-35); MEAN CORPUSCULAR VOLUME 90.1 fL (81-99); MONOCYTES # (AUTO) 0.8 (0.2-0.8); MONOCYTES % 8.8 % (4.4-11.3); NEUTROPHILS # (AUTO) 5.9 (2.1-6.9); NEUTROPHILS % 67.6 % (38.7-80.0); PLATELET COUNT 168 x10e3/uL (140-360); RED BLOOD COUNT 4.35 x10e6/uL (4.3-5.7); RED CELL DISTRIBUTION WIDTH 12.7 % (11.7-14.4); WHITE BLOOD COUNT 8.67 x10e3/uL (4.8-10.8)
[2024-01-24 06:33] LABS: ALBUMIN 3.1 g/dL (3.5-5.0); ALBUMIN/GLOBULIN RATIO 0.9 (0.8-2.0); BILIRUBIN,TOTAL 1.2 mg/dL (0.2-1.2); CALCIUM 8.9 mg/dL (8.4-10.2); CREATININE, SERUM 1.01 mg/dL (0.72-1.25); MAGNESIUM 1.7 MG/DL (1.3-2.1); TOTAL PROTEIN 6.4 g/dL (6.5-8.1)
[2024-01-24] MEDS: COLESTIPOL HCL 1 G TAB PO SCH (09:38)
[2024-01-24] MEDS ORDERED: ONDANSETRON HCL 4 MG ORAL DISINTEGRATING TAB PO PRN (10:30)
[2024-01-24] MEDS: AMLODIPINE BESYLATE 10 MG TAB PO SCH (12:31)
[2024-01-24] MEDS: Morphine 4mg INJECTION 4 MG/ML INJ IV PRN (15:41)
[2024-01-24] MEDS: TAMSULOSIN HCL 0.4 MG CAP PO SCH (21:00)
[2024-01-25] VITALS (9 sets, daily range): BP systolic 121–156; BP diastolic 63–71; PULSE 85–96; RESP 18; TEMP 98.4–99.6; O2SAT 93–96
[2024-01-25] MEDS: Vancomycin IV 1 GM in SODIUM CHLORIDE 0.9% 250ML 250 ML IV SCH (05:00)
[2024-01-25] MEDS: KETOROLAC TROMETHAMINE 30 MG/ML VIAL IV ONE (05:01)
[2024-01-25 05:47] LABS: BASOPHILS % 0.4 % (0.0-1.0); EOSINOPHILS # (AUTO) 0.4 (0.0-0.4); HEMATOCRIT 39.7 % (38.2-49.6); HEMOGLOBIN 13.5 g/dL (14.0-18.0); LYMPHOCYTES # (AUTO) 1.4 (1.0-3.2); LYMPHOCYTES % 13.4 % (18.0-39.1); MEAN CORPUSCULAR HEMOGLOBIN 31.3 pg (28-32); MEAN CORPUSCULAR VOLUME 91.9 fL (81-99); MONOCYTES % 9.3 % (4.4-11.3); NEUTROPHILS # (AUTO) 7.4 (2.1-6.9); NEUTROPHILS % 72.4 % (38.7-80.0); PLATELET COUNT 196 x10e3/uL (140-360); RED BLOOD COUNT 4.32 x10e6/uL (4.3-5.7); RED CELL DISTRIBUTION WIDTH 12.7 % (11.7-14.4); WHITE BLOOD COUNT 10.19 x10e3/uL (4.8-10.8)
[2024-01-25 06:21] LABS: ALBUMIN 3.2 g/dL (3.5-5.0); ANION GAP 15.1 mmol/L (8-16); CALCIUM 8.8 mg/dL (8.4-10.2); CREATININE, SERUM 0.99 mg/dL (0.72-1.25); POTASSIUM 4.1 mmol/L (3.5-5.1); TOTAL PROTEIN 6.5 g/dL (6.5-8.1)
[2024-01-26] VITALS (7 sets, daily range): BP systolic 119–164; BP diastolic 62–75; PULSE 78–103; RESP 18–21; TEMP 97.6–99.6; O2SAT 78–95
[2024-01-27 00:21] VITALS: BP 145/75; PULSE 91; RESP 21; TEMP 98.2; O2SAT 95
[2024-01-27 04:21] VITALS: BP 114/98; PULSE 93; RESP 20; TEMP 98.3; O2SAT 94
[2024-01-27] MEDS ORDERED: Vancomycin IV 1 GM VIAL ONE (07:43)
[2024-01-27] MEDS ORDERED: SODIUM CHLORIDE 0.9% 250ML 250 ML ONE (07:44)
[2024-01-27 07:55] VITALS: BP 130/67; PULSE 86; RESP 18; TEMP 97.6; O2SAT 99
[2024-01-27] MEDS: Vancomycin IV 1 GM in SODIUM CHLORIDE 0.9% 250ML 250 ML IV SCH (08:12)
[2024-01-27 08:14] VITALS: BP 130/67
[2024-01-27] MEDS ORDERED: AUGMENTIN 500-1 EACH PO (09:58)
== END 2024-01-27 11:25 | disposition home or self-care (01) | DRG 603 ==
LOC: ER 08:00 → ERHOLD 09:29 → OBSVTOIN 09:29 → MED/SURG 13:39 → MED/SURG2 01-24 18:33
PROVIDERS: ADMIT Internal Medicine; ATTEND Internal Medicine
DX: L03.113 Cellulitis of right upper limb (principal); N17.9 Acute kidney failure, unspecified; I12.9 Hypertensive chronic kidney disease with stage 1 through stage 4 chronic kidney disease, or unspecified chronic kidney disease; N18.30 Chronic kidney disease, stage 3 unspecified; E78.5 Hyperlipidemia, unspecified; N40.0 Benign prostatic hyperplasia without lower urinary tract symptoms; D64.9 Anemia, unspecified; Z11.52 Encounter for screening for COVID-19; Z88.1 Allergy status to other antibiotic agents; E66.9 Obesity, unspecified; Z68.30 Body mass index [BMI] 30.0-30.9, adult; Z79.899 Other long term (current) drug therapy
CPT/HCPCS: 36415; 80048; 80053; 80202; 83735; 84550; 85025; 87040; 99252; 99284; J0696; J1885; J2270; J7030; J7050; U0002